=== PATIENT | male | born 1990 | race Caucasian/White ===

== ENCOUNTER 2017-08-20 16:32 | Emergency (ER) | payer SELFPAY ==
[2017-08-20 16:49] VITALS: BP 116/68; PULSE 57; TEMP 98.2; BMI 21.6
--- NOTE | 2017-08-20 17:28 | PDOC ---
History of Present Illness - General Chief Complaint: Laceration Stated Complaint: LACERATION Time Seen by Provider: 08/20/17 17:21 Past History - Travel Traveled outside of the country in the last 30 days: No Close contact w/someone who was outside of country & ill: No - Past Medical History Allergies/Adverse Reactions: Allergies Allergy/AdvReac Type Severity Reaction Status Date / Time No Known Allergies Allergy Verified 08/20/17 16:49 Home Medications: Ambulatory Orders NK [No Known Home Medication] 08/20/17 Other medical history: NONE - Suicide/Smoking/Psychosocial Hx Smoking History: Never smoked Hx Alcohol Use: No Drug/Substance Use Hx: No Review of Systems - Review of Systems Able to Perform ROS?: Yes Comments:: 08/20/17 17:45 CONSTITUTIONAL: Absent: fever, chills, diaphoresis, generalized weakness, malaise, loss of appetite HEENT: Absent: rhinorrhea, nasal congestion, throat pain, throat swelling, difficulty swallowing, mouth swelling, ear pain, eye pain, visual Changes CARDIOVASCULAR: Absent: chest pain, loss of consciousness, palpitations, irregular heart rate, peripheral edema RESPIRATORY: Absent: cough, shortness of breath, dyspnea with exertion, orthopnea, wheezing, stridor, hemoptysis GASTROINTESTINAL: Absent: abdominal pain, abdominal distension, nausea, vomiting, diarrhea, constipation, melena, hematochezia GENITOURINARY: Absent: dysuria, frequency, urgency, hesitancy, hematuria, flank pain, genital pain MUSCULOSKELETAL: Absent: myalgia, arthralgia, joint swelling SKIN: Absent: rash, itching, pallor HEMATOLOGIC/IMMUNOLOGIC: Absent: easy bleeding, easy bruising, lymphadenopathy, frequent infections ENDOCRINE: Absent: unexplained weight gain, unexplained weight loss, heat intolerance, cold intolerance NEUROLOGIC: Absent: headache, focal weakness or paresthesias, dizziness, unsteady gait, seizure, mental status changes, bladder or bowel incontinence PSYCHIATRIC: Absent: anxiety, depression, suicidal or homicidal ideation, hallucinations. Is the patient limited Kyrgyz proficient: No *Physical Exam - Vital Signs Last Vital Signs Temp Pulse Resp BP Pulse Ox 98.2 F 57 L 20 116/68 100 08/20/17 16:45 08/20/17 16:45 08/20/17 16:45 08/20/17 16:45 08/20/17 16:45 - Physical Exam Comments: 08/20/17 17:45 GENERAL: [The patient is awake, alert, and fully oriented, in no acute distress. ] HEAD: [Normal with no signs of trauma.] EYES: [Pupils equal, round and reactive to light, extraocular movements intact, sclera anicteric, conjunctiva clear.] EXTREMITIES: [Normal range of motion, no edema.] NEUROLOGICAL: [Normal speech, normal gait.] PSYCH: [Normal mood, normal affect.] SKIN: [Warm, Dry, normal turgor, no rashes or lesions noted.] Procedures - Laceration/Wound Repair Upper Face Wound Length: to 2.5 cm Wound Explored: clean, no foreign body present Wound's Depth, Shape: superficial, linear Irrigated w/ Saline: Yes Betadine Prep: Yes Amount of Anesthetic (ccs): 0 Wound Repaired With: Dermabond *DC/Admit/Observation/Transfer Diagnosis at time of Disposition: Laceration - Discharge Dispostion Disposition: HOME Condition at time of disposition: Good Admit: No - Patient Instructions Printed Discharge Instructions: DI for Laceration Repair Additional Instructions: Your laceration was repaired with dermabond. Keep the area clean and dry. Do not soak the face until the cut heals. The dermabond will flake off in approximately 7 days. Do not try and scratch it off. You may use an ice pack on the area to help the swelling. You may take Tylenol or Motrin as needed for pain. Follow up with your primary care doctor in 1 week. Return to the emergency department if you have worsening headache, pain or if you have any changes in your symptoms. Maddox laceracin se repar con dermabond. Mantenga el paul limpia y seca. No remoje la laura hasta que el clemencia se cure. El dermabond se desprender en aproximadamente 7 jaimes. No intentes rascarte. Usted puede usar un paquete de hielo en el paul para ayudar a la hinchazn. Puede uche Tylenol o Motrin segn sea necesario para el dolor. Stephanie un seguimiento con maddox mdico de cabecera en flora semana. Vuelva al departamento de urgencias si tiene dolor de anny, dolor o si tiene algn cambio en diony sntomas. Print Language: UPPER [place]BI[place]
[2017-08-20] MEDS ORDERED: traMADol HCL 50 MG TABLET PO ONE (17:44)
[2017-08-20] MEDS ORDERED: traMADol HCL 50 MG TABLET ONE (17:48)
== END 2017-08-20 18:28 | disposition home or self-care (01) ==
LOC: JERFT 16:32
PROC: 0HQ1XZZ Repair Face Skin, External Approach (ICD-10-PCS; principal; 2017-08-20)
DX: S01.81XA Laceration without foreign body of other part of head, initial encounter (principal); W22.8XXA Striking against or struck by other objects, initial encounter; Y93.89 Activity, other specified; Y92.038 Other place in apartment as the place of occurrence of the external cause; Y99.8 Other external cause status
CPT/HCPCS: 99281-25